=== PATIENT | male | born 1935 | race Caucasian/White ===

== ENCOUNTER → 2022-07-18 13:24 | Outpatient (BNVA) | payer OTHER, SELFPAY | PROVIDERS: PCP Nurse Practitioner Adult Health; Visit Provider Psychiatry & Neurology Neurology | DX: Z13.89 Encounter for screening for other disorder (principal) ==

== ENCOUNTER 2023-12-18 13:22 | Outpatient (AMB) | payer OTHER, SELFPAY ==
--- NOTE | 2023-12-18 13:29 | MHC.OFFVIS ---
Vital Signs 12/18/23 13:30 Height 5 ft 7 in Weight 162 lb 2 oz BMI 25.4 BP 122/70 Blood Pressure Location Rt brachial Position Sitting Respiration 16 Pulse 85 Pulse Source Pulse Oximeter Pulse Oximetry (%) 97 Oxygen Delivery Method Room Air Intake Visit Reasons: Follow Up - Confirmed Intake Note: Pt presents to the office for a 5 month follow up for dementia. [employer] Required: No Allergies No Known Allergies Allergy (Verified 12/18/23 13:29) Medication List - Last Reconciled 12/18/23 by Ira Pickett MD aspirin 81 mg PO DAILY atorvastatin (Lipitor) 40 mg PO BEDTIME cholecalciferol (vitamin D3) 50 mcg PO DAILY cyanocobalamin (vitamin B-12) 1,000 mcg PO DAILY donepezil (Aricept) 10 mg PO BEDTIME ezetimibe (Zetia) 10 mg PO DAILY memantine (Namenda) 10 mg PO BID HPI Comments Details: 86y/o male comes for follow up of shuffling gait and memory issues after more than 1 year. His memory is worse and mild worsening of his shuffling.He is accompanied by his who helps with history He started having short term memory issues for past 3 years. He frequently repeats his questions, forgets recent events. He forgets conversations. He can get confused with people. He is independent in all his activities of daily living.He denies hallucinations or any behavior issues, personality issues.His mood is stable.No h/o head injury. Sleep is good. He is slower than before. He has trouble getting up from chair , walks slow. NO falls No neck pain or back pain No tremors . He denies urinary incontinence.No change in his speech or hand writing [facility] Medical History (Updated 12/18/23 @ 13:52 by Ira Pickett MD) Gait disorder Dementia Memory loss Hyperlipidemia HTN (hypertension) Diverticulosis Colon polyp Cataracts, bilateral Cardiomegaly Left shoulder pain CAD (coronary artery disease) BPH (benign prostatic hyperplasia) Surgical History Hx of tonsillectomy Hx of appendectomy Social History Alcohol intake: current Tobacco use type: Cigar Physical Exam Vital Signs: Last Vital Signs Pulse 85 12/18/23 13:30 Resp 16 12/18/23 13:30 BP 122/70 12/18/23 13:30 Pulse Ox 97 12/18/23 13:30 Oxygen Delivery Method Room Air 12/18/23 13:30 BMI result Body Mass Index 25.4 Const General: cooperative, healthy appearing and no acute distress Nutritional Appearance: average body habitus Limitations: physical limitations HEENT Head: Yes normal to inspection and Yes normocephalic Neuro Other: Mild decreased facial expression and blink No tremors No cogwheel rigidity General: tone normal, moves all extremities and no focal motor deficits Cognition (Neuro): abnormal cognition Gait exam (Neuro): Other gait observations present (mild stoop and slowness) Motor exam (neuro): 5/5 motor strength present throughout and Normal motor muscle tone present throughout Deep tendon reflexes (DTR's): Right triceps reflex intensity grade: 1+, Left triceps reflex intensity grade: 1+, Rt Biceps (C5, C6): 1+, Left biceps reflex intensity grade: 1+, Right brachioradialis reflex intensity grade: 1+, Left brachioradialis reflex intensity grade: 1+, Right patellar reflex intensity grade: 1+ and Left patellar reflex intensity grade: 1+ Coordination: [id number] test normal Psych Appearance: grossly normal Orientation What is the (year) (season) (date) (day) (month)?: season Where are we (state) (county) (town or city) (hospital) (floor)?: state, county, town or city, hospital/clinic and floor Registration Name of 3 unrelated objects clearly and slowly, then ask patient to repeat all 3 of them. (1st repeat determines score. Make sure they can repeat all three): object 1, object 2 and object 3 Attention & Calculation (CHOOSE ONE) Spell WORLD backwards (DLROW): 5 letters Language Show patient a wristwatch & ask what it is. Repeat for pencil.: watch and pencil Ask the patient to repeat the phrase 'No ifs, ands, or buts' after you.: correct Ask the patient to 'take a piece of paper with their right hand' 'fold paper in half' 'place paper on floor': take paper in right hand, fold paper in half and place paper on floor Print the sentence 'CLOSE YOUR EYES' on a piece. If patient actually closes eyes then score.: followed written direction Give patient a blank piece of paper & ask to write a sentence. Score if it contains a noun & verb.: sentence contains subject and verb Ask patient to copy figure of intersecting pentagons exactly. Score if all 10 angles & 2 intersects are included.: all 10 angles present & 2 are intersected Score Score: 23 Assessment & Plan Assessment & Plan (1) Dementia: Code(s): F03.90 - Unspecified dementia, unspecified severity, without behavioral disturbance, psychotic disturbance, mood disturbance, and anxiety Category: Medical (2) Gait disorder: Comment: age related, musculoskeletal, white matter disease Code(s): R26.9 - Unspecified abnormalities of gait and mobility Category: Medical Plan MRI brain reviewed Amyloid PET to evaluate continue donepezil 10mg qd and namenda 10mg bid Orders: Orders Comprehensive Met. Panel Today F03.90 - Unspecified dementia, unspecified severity, without behavioral disturbance, psychotic disturbance, mood disturbance, and anxiety PET Brain beta amyloid Today F03.90 - Unspecified dementia, unspecified severity, without behavioral disturbance, psychotic disturbance, mood disturbance, and anxiety Complete Blood Count Auto Diff Today F03.90 - Unspecified dementia, unspecified severity, without behavioral disturbance, psychotic disturbance, mood disturbance, and anxiety [facility]errals [facility] Referral F03.90 - Unspecified dementia, unspecified severity, without behavioral disturbance, psychotic disturbance, mood disturbance, and anxiety, R26.9 - Unspecified abnormalities of gait and mobility Coding Level of Care Code Est Pt Level 4 (43406) Complex EM visit Add On G2211 Diagnoses Dementia F03.90 Gait disorder R26.9
[2023-12-18 13:30] VITALS: BP 122/70; PULSE 85; RESP 16; O2SAT 97; BMI 25.4
== END 2023-12-18 14:04 | disposition home or self-care (01) ==
PROVIDERS: PCP Nurse Practitioner Adult Health; Visit Provider Psychiatry & Neurology Neurology
DX: F03.90 Unspecified dementia, unspecified severity, without behavioral disturbance, psychotic disturbance, mood disturbance, and anxiety (principal); R26.9 Unspecified abnormalities of gait and mobility
CPT/HCPCS: 99214; G2211

== ENCOUNTER → 2023-12-18 13:22 | Outpatient (BNVA) | payer OTHER, SELFPAY | PROVIDERS: PCP Nurse Practitioner Adult Health; Visit Provider Psychiatry & Neurology Neurology ==

== ENCOUNTER 2023-12-18 14:09 | Outpatient (REF) | payer OTHER, SELFPAY ==
[2023-12-18 17:26] LABS: MANUAL DIFF FLAG NO
[2023-12-18 17:47] LABS: Basophils Percent Auto 0.6 % (0-2); Hematocrit 36.2 % (42.0-52.0); Hemoglobin 12.4 g/dl (14.0-18.0); Imm Gran Abs Auto 0.07 X10*3/uL (0.00-0.03); Imm Gran Pct Auto 1.1 % (0.0-0.4); Lymphocytes Absolute Auto 1.6 X10*3/uL (1.2-4.9); Lymphocytes Percent Auto 24.2 % (20-40); Mean Corpuscular HGB Conc 34.3 g/dl (31.0-36.0); Mean Corpuscular Volume 84.6 fL (80.0-98.0); Mean Platelet Volume 11.8 fL (9.4-12.4); Monocytes Absolute Auto 0.8 X10*3/uL (0.1-1.2); Monocytes Percent Auto 11.9 % (2-11); Neutrophils Absolute Auto 4.2 x10*3/uL (2.0-8.3); Neutrophils Percent Auto 62.2 % (45-73); Platelet Count 134 X10*3/uL (160-400); Red Blood Count 4.28 X10*6/uL (4.60-5.80); Red Cell Distribution Width 15.5 % (11.0-16.0); White Blood Count 6.7 X10*3/uL (4.8-10.8)
[2023-12-18 17:58] LABS: Alanine Aminotransferase 14 U/L (0-40); Albumin Level 4.4 g/dL (3.5-5.0); Alkaline Phosphatase 68 U/L (39-117); Anion Gap 12 (12-20); Aspartate Amino Transferase 17 U/L (5-37); Bilirubin Total 0.4 mg/dL (0.0-1.0); Blood Urea Nitrogen 15 mg/dL (9-16); Calcium 9.5 mg/dL (8.4-10.2); Carbon Dioxide 26 mmol/L (22-29); Chloride 107 mmol/L (96-108); Estimated Glomerular Filt Rate > 60; Glucose Random 143 mg/dL (60-115); Potassium 3.9 mmol/L (3.3-5.1); Sodium 141 mmol/L (135-145); Total Protein 7.2 g/dL (6.5-8.0)
== END 2023-12-18 14:10 | disposition home or self-care (01) ==
LOC: HO.HKASLDS 14:09
PROVIDERS: Visit Provider Psychiatry & Neurology Neurology
DX: F03.90 Unspecified dementia, unspecified severity, without behavioral disturbance, psychotic disturbance, mood disturbance, and anxiety (principal)
CPT/HCPCS: 36415; 80053; 85025